=== PATIENT | female | born 1980 | race Caucasian/White ===

== ENCOUNTER 2018-08-23 19:23 | Emergency (ER) | payer MEDICAID ==
[2018-08-23] MEDS ORDERED: ONDANSETRON HCL INJ/PF 4 MG/2 ML SDV IV ONE (23:14)
--- NOTE | 2018-08-23 23:16 | ER Document Report ---
ED Medical Screen (RME) - General Chief Complaint: Constipation Stated Complaint: SEVERE CONSTIPATION Time Seen by Provider: 08/23/18 23:13 Primary Care Provider: LEAH FINCH [Primary Care Provider] - Follow up as needed Notes: Patient is a 37-year-old female presents to the emergency department complaining of constipation for the last 2 weeks. Patient states she has used [id number] stool softeners, laxatives, enemas, suppositories with no relief. Patient states 2 days ago she did vomit after eating and has had no p.o. solid food since. Patient states she has been able to drink liquids without any more vomiting but does feel nauseated. Patient states she does take methadone for her degenerative disc disease. Past medical history: Diabetes, degenerative disc disease Medications: Metformin, methadone Allergies: None Surgical history: Tubal ligation GENERAL: Alert, interacts well. No acute distress. ABDOMEN: Obese, soft, generalized tenderness all 4 quadrants. Non-distended. Bowel sounds present in all 4 quadrants. I have greeted and performed a rapid initial assessment of this patient. A comprehensive ED assessment and evaluation of the patient, analysis of test results and completion of the medical decision making process will be conducted by additional ED providers. TRAVEL OUTSIDE OF THE [place] IN LAST 30 DAYS: No Physical Exam - Vital signs Vitals: Temp Pulse Resp BP Pulse Ox 97.9 F 89 20 123/83 97 08/23/18 19:32 08/23/18 19:32 08/23/18 19:32 08/23/18 19:32 08/23/18 19:32 Course - Vital Signs Vital signs: Temp Pulse Resp BP Pulse Ox 97.9 F 89 20 123/83 97 08/23/18 19:32 08/23/18 19:32 08/23/18 19:32 08/23/18 19:32 08/23/18 19:32 Doctor's Discharge - Discharge Referrals: LEAH FINCH [Primary Care Provider] - Follow up as needed
[2018-08-24 00:08] LABS: APPEARANCE,URINE CLOUDY; BILIRUBIN,URINE NEGATIVE (NEGATIVE); COLOR,URINE YELLOW; GLUCOSE, URINE NEGATIVE (NEGATIVE); KETONES,URINE NEGATIVE (NEGATIVE); LEUKOCYTE ESTERASE,URINE MODERATE (NEGATIVE); NITRITE,URINE NEGATIVE (NEGATIVE); PROTEIN,URINE NEGATIVE (NEGATIVE); URINE SPECIFIC GRAVITY 1.025
--- NOTE | 2018-08-24 00:27 | ER Document Report ---
ED General - General Chief Complaint: Constipation Stated Complaint: SEVERE CONSTIPATION Time Seen by Provider: 08/23/18 23:13 Notes: Patient is a 37-year-old female who presents with complaints of severe constipation. She said last bowel movements approximately a week ago. She is been using stool softeners for 2 weeks. She says she tried MiraLAX once but nothing worked. She tried an enema but did not help. She has she still passes some gas but not much. She did have some vomiting 2 days ago when she is a large meal. She said otherwise she still been able to hold down liquids and she eats small amounts of food once a day that she is able to hold down. No fevers. She is on methadone. She says she is going to try and start to wean down on the methadone so that this does not occur as often as it has been. No other complaints at this time. TRAVEL OUTSIDE OF THE [place] IN LAST 30 DAYS: No Past Medical History - Social History Smoking Status: Never Smoker Frequency of alcohol use: None Drug Abuse: None Family History: Reviewed & Not Pertinent Review of Systems - Review of Systems Notes: My Normal Review Basic REVIEW OF SYSTEMS: CONSTITUTIONAL : Denies fever, chills, or sweats. Denies recent illness. RESPIRATORY: Denies cough, cold, or chest congestion. Denies shortness of breath, difficulty breathing, or wheezing. GASTROINTESTINAL: Some abdominal pain. Constipation. GENITOURINARY: Denies difficulty urinating, painful urination, burning, frequency, or blood in urine. MUSCULOSKELETAL: Denies neck or back pain or joint pain or swelling. SKIN: Denies rash or skin lesions. NEUROLOGICAL: Denies altered mental status or loss of consciousness. Denies headache. Denies weakness or paralysis or loss of use of either side. Denies problems with gait or speech. Denies sensory or motor loss. ALL OTHER SYSTEMS REVIEWED AND NEGATIVE. Physical Exam - Vital signs Vitals: Temp Pulse Resp BP Pulse Ox 97.9 F 89 20 123/83 97 08/23/18 19:32 08/23/18 19:32 08/23/18 19:32 08/23/18 19:32 08/23/18 19:32 - Notes Notes: General Appearance: Well nourished, alert, cooperative, no acute distress, no obvious discomfort. Well-appearing. Vitals: reviewed, See vital signs table. Eyes: PERRL, EOMI, Conjuctiva clear Abdomen: Normal BS, soft, No rigidity, mild scattered abdominal tenderness to palpation., No guarding, no rebound, no abdominal masses, no organomegaly Neuro: speech clear, oriented x 3, normal affect, responds appropriately to questions. Course - Re-evaluation Re-evalutation: 08/24/18 03:06 Patient had a large bowel movement after enema. She feels much improved. She looks well. She has no abdominal pain at this time. I feel she is safe to be discharged home. I strongly encouraged her return to ER if she has recurrent dental pain, fevers, vomiting, or feels unwell. We talked at length about weaning down or off the methadone. She is encouraged to talk to her doctor about this. Patient agrees with plan will be discharged home. Dictation of this chart was performed using voice recognition software; therefore, there may be some unintended grammatical errors. - Vital Signs Vital signs: Temp Pulse Resp BP Pulse Ox 97.9 F 89 20 123/83 97 08/23/18 19:32 08/23/18 19:32 08/23/18 19:32 08/23/18 19:32 08/23/18 19:32 - Laboratory Laboratory results interpreted by me: 08/23/18 23:55 Urine Blood LARGE H Urine Urobilinogen 2.0 H Ur Leukocyte Esterase MODERATE H Discharge - Discharge Clinical Impression: Abdominal pain Qualifiers: Abdominal location: unspecified location Qualified Code(s): R10.9 - Unspecified abdominal pain Condition: Good Disposition: HOME, SELF-CARE Additional Instructions: I suspect that the mild abdominal discomfort and bloating is related to constipation which is likely a result of the Methadone. Please talk to your doctor about being weaned off the methadone to help prevent future problems with constipation. Please continue to use Miralax daily and use over the counter suppositories such as glycerin suppositories. please return to the ER immediately if you develop fevers, vomiting, or increasing abdominal pain. Forms: Return to Work
--- NOTE | 2018-08-24 00:49 | RADIOLOGY REPORT (SQ) ---
EXAM DESCRIPTION: XR ABDOMEN SUPINE AND ERECT WITH CHEST (ABD ACUTE SERIES) COMPLETED DATE/TME: 08/23/2018 23:13 CLINICAL HISTORY: 37 years, Female, no BM x 2 weeks, vomiting COMPARISON: None. NUMBER OF VIEWS: Three TECHNIQUE: Supine and upright views of the abdomen. PA view of the chest. LIMITATIONS: None. FINDINGS: The lungs are clear. There are no pleural abnormalities. The cardiac silhouette and pulmonary vessels are normal. Supine and upright views of the abdomen show retained stool throughout the colon. No abnormal air-fluid levels. No pathologic calcifications. Tubal ligation clips are noted. IMPRESSION: No acute cardiopulmonary disease. Findings consistent with constipation. No evidence of obstruction. copyright 2010 [email or web address]- All Rights Reserved
[2018-08-24] MEDS ORDERED: MINERAL OIL 30 ML UDCUP PR ONE (01:15)
[2018-08-24 03:43] VITALS: BP 136/89
== END 2018-08-24 03:41 | disposition home or self-care (01) ==
LOC: ER 19:23
DX: R10.9 Unspecified abdominal pain (principal); K59.00 Constipation, unspecified
CPT/HCPCS: 99283; 96374; 81025; 81001; 74022; J3490; J2405

== ENCOUNTER 2019-04-08 18:43 | Emergency (ER) | payer MEDICAID ==
[2019-04-08] MEDS ORDERED: KETOROLAC TROMETHAMINE INJ/PF 30 MG/1 ML SDV IV ONE (20:06)
[2019-04-08] MEDS ORDERED: ONDANSETRON HCL INJ/PF 4 MG/2 ML SDV IV ONE (20:06)
[2019-04-08] MEDS ORDERED: NORMAL SALINE 1000 ML 1,000 ML IV ONE (20:07)
--- NOTE | 2019-04-08 20:08 | ER Document Report ---
ED Medical Screen (RME) - General Chief Complaint: Flank Pain Stated Complaint: FLANK PAIN Time Seen by Provider: 04/08/19 20:04 Mode of Arrival: Ambulatory Information source: Patient Notes: Patient is an otherwise healthy 38-year-old female presenting to the emergency department chief complaint of right flank pain with nausea. Patient reports history of kidney infections in the past but is unsure if she is ever had a kidney stone. She states that the pain feels like a sharp stabbing pain. She denies any urinary frequency or dysuria. Exam: Tenderness to palpation of the right lower quadrant, mild CVA tenderness on the right. I have greeted and performed a rapid initial assessment of this patient. A comprehensive ED assessment and evaluation of the patient, analysis of test res ults and completion of the medical decision making process will be conducted by additional ED providers. I have specifically instructed the patient or family members with the patient to immediately return to any nursing staff should anything change in the patient's condition or with their chief complaint. This medical record was dictated with voice recognizing software. There may be grammatical, syntax errors that are unintended. TRAVEL OUTSIDE OF THE [place] IN LAST 30 DAYS: No - Related Data Allergies/Adverse Reactions: No Known Allergies Allergy (Verified 04/08/19 18:45) Past Medical History Pulmonary Medical History: Reports: Hx Asthma Endocrine Medical History: Reports: Hx Diabetes Mellitus Type 2 Renal/ Medical History: Denies: Hx Peritoneal Dialysis Past Surgical History: Reports: Hx Gynecologic Surgery - DNC, Hx Tubal Ligation Physical Exam - Vital signs Vitals: Temp Pulse Resp BP Pulse Ox 98.9 F 85 18 148/89 H 98 04/08/19 18:57 04/08/19 18:57 04/08/19 18:57 04/08/19 18:57 04/08/19 18:57 Course - Vital Signs Vital signs: Temp Pulse Resp BP Pulse Ox 98.9 F 85 18 148/89 H 98 04/08/19 18:57 04/08/19 18:57 04/08/19 18:57 04/08/19 18:57 04/08/19 18:57
[2019-04-08 21:04] LABS: ABSOLUTE BASOPHILS # (AUTO) 0.1 10^3/uL (0.0-0.2); ABSOLUTE EOSINOPHILS # (AUTO) 0.2 10^3/uL (0.0-0.6); ABSOLUTE LYMPHOCYTES (AUTO) 3.5 10^3/uL (0.5-4.7); ABSOLUTE MONOCYTES (AUTO) 0.8 10^3/uL (0.1-1.4); ABSOLUTE NEUT (AUTO) 5.6 10^3/uL (1.7-8.2); BASOPHILS % (AUTO) 0.6 % (0-2); EOSINOPHILS % (AUTO) 2.2 % (0-6); HEMATOCRIT 43.1 % (36.0-47.0); HEMOGLOBIN 14.8 g/dL (12.0-15.5); LYMPHOCYTES % (AUTO) 34.7 % (13-45); MEAN CORPUSCULAR HEMOGLOBIN 28.7 pg (27.0-33.4); MEAN CORPUSCULAR HGB CONC 34.3 g/dL (32.0-36.0); MEAN CORPUSCULAR VOLUME 84 fl (80-97); MONOCYTES % (AUTO) 7.4 % (3-13); PLATELET COUNT 255 10^3/uL (150-450); RED BLOOD COUNT 5.15 10^6/uL (3.72-5.28); RED CELL DISTRIBUTION WIDTH 13.8 % (11.5-14.0); SEGMENTED NEUTROPHILS % (AUTO) 55.1 % (42-78); TOTAL CELLS COUNTED % (AUTO) 100 %; WHITE BLOOD COUNT 10.1 10^3/uL (4.0-10.5)
[2019-04-08 21:06] LABS: APPEARANCE,URINE CLEAR; BILIRUBIN,URINE NEGATIVE (NEGATIVE); COLOR,URINE COLORLESS; GLUCOSE, URINE NEGATIVE (NEGATIVE); KETONES,URINE NEGATIVE (NEGATIVE); LEUKOCYTE ESTERASE,URINE NEGATIVE (NEGATIVE); NITRITE,URINE NEGATIVE (NEGATIVE); PROTEIN,URINE NEGATIVE (NEGATIVE); URINE SPECIFIC GRAVITY 1.001; UROBILINOGEN,URINE NEGATIVE mg/dL (<2.0)
[2019-04-08 21:09] LABS: ALBUMIN 4.3 g/dL (3.5-5.0); ALKALINE PHOSPHATASE 79 U/L (38-126); ANION GAP 8 (5-19); ASPARTATE AMINO TRANSFERASE 30 U/L (14-36); BILIRUBIN,DIRECT 0.1 mg/dL (0.0-0.4); BILIRUBIN,TOTAL 0.5 mg/dL (0.2-1.3); BLOOD UREA NITROGEN 10 mg/dL (7-20); CALCIUM 9.6 mg/dL (8.4-10.2); CARBON DIOXIDE 27 mmol/L (22-30); CHLORIDE 103 mmol/L (98-107); GLUCOSE 95 mg/dL (75-110); POTASSIUM 4.3 mmol/L (3.6-5.0); TOTAL PROTEIN 7.8 g/dL (6.3-8.2)
--- NOTE | 2019-04-08 21:50 | ER Document Report ---
ED GI/ - General Chief Complaint: Flank Pain Stated Complaint: FLANK PAIN Time Seen by Provider: 04/08/19 21:50 Mode of Arrival: Ambulatory Information source: Patient Notes: HISTORY OF PRESENT ILLNESS: Patient is a 38-year-old female with a past medical history of pyelonephritis during who presents with right flank pain. Location: Right flank Onset: One day ago, sudden Alleviation: None Provocation: Movement Quality: Achy, cramping Radiation: Right posterior back Severity: Severe worse, currently mild Timing: Persistent History of abdominal surgery: None Associated symptoms: Mild nausea but no vomiting, denies fevers or chills, no cough congestion, no constipation or diarrhea, no vaginal bleeding or discharge, no hematuria or dysuria Last bowel movement: Today normal Last menstrual period: Last month REVIEW OF SYSTEMS: CONSTITUTIONAL : Denies fever or chills, no sweats. Denies recent illness. EENT: Denies eye, ear, throat, or mouth pain or symptoms. Denies nasal or sinus congestion. CARDIOVASCULAR: Denies chest pain. Denies swelling of the legs. RESPIRATORY: Denies cough, cold, or chest congestion. Denies shortness of breath or difficulty breathing. Denies wheezing. GASTROINTESTINAL: Positive for flank pain. Positive for nausea but no vomiting or diarrhea. Denies constipation. GENITOURINARY: Denies difficulty urinating, painful urination, burning, frequency, or blood in urine. FEMALE GENITOURINARY: Denies vaginal bleeding, abnormal or irregular periods. MUSCULOSKELETAL: Denies neck or back pain or joint pain or swelling. SKIN: Denies rash or skin lesions. HEMATOLOGIC : Denies easy bruising or bleeding. LYMPHATIC: Denies swollen, enlarged glands. NEUROLOGICAL: Denies altered mental status or loss of consciousness. Denies headache. Denies weakness or paralysis or loss of use of either side. Denies problems with gait or speech. Denies sensory or motor loss. PSYCHIATRIC: Denies anxiety or stress or depression. All other systems reviewed and negative. PHYSICAL EXAMINATION: GENERAL: Well-appearing, well-nourished and in no acute distress. HEAD: Atraumatic, normocephalic. No scalp deformity, depression, or crepitance. EYES: Pupils are 3 mm and equal/round/reactive to light, extraocular movements intact, sclera anicteric, conjunctiva are normal. ENT: Nares patent bilaterally, oropharynx. Moist mucous membranes. No tonsil hypertrophy. NECK: Normal range of motion, supple without lymphadenopathy. LUNGS: Breath sounds present, equal, and clear to auscultation bilaterally. No wheezes, rales, or rhonchi. HEART: Regular rate and rhythm without murmurs, rubs, or gallops. 2+ peripheral pulses. Normal capillary refill. ABDOMEN: Soft, nontender. Mild right CVA tenderness. Normoactive bowel sounds. No guarding, no rebound. No masses appreciated. BACK: Normal contour, no midline tenderness. Rectal exam deferred. GENITAL/PELVIC: Deferred. EXTREMITIES: Normal range of motion, no pitting or edema. No cyanosis. NEUROLOGICAL: No focal neurological deficits. Moves all extremities spontaneously and on command. PSYCH: Normal mood, normal affect. No suicidal thoughts/ideations. No homicidal thoughts/ideations. No hallucinations. SKIN: Warm, dry, normal turgor, no rashes or lesions noted. ASSESSMENT AND PLAN: This patient is a 38-year-old female who presents with right flank pain that could represent ureterolithiasis versus UTI versus pyelonephritis versus muscle strain. 1. Will obtain labs, urine, and reassess. 2. Will give IV fluids with Toradol. TRAVEL OUTSIDE OF THE [place] IN LAST 30 DAYS: No - HPI Patient complains to provider of: Flank pain Onset: Yesterday Timing/Duration: Sudden Quality of pain: Achy, Cramping Severity at maximum: Severe Severity in ED: Mild Pain Level: 2 Location: Right flank Vaginal bleeding (Compared to normal period): None Associated symptoms: Nausea, Urinary frequency Exacerbated by: Denies Relieved by: Denies Similar symptoms previously: Yes Recently seen / treated by doctor: No - Related Data Allergies/Adverse Reactions: No Known Allergies Allergy (Verified 04/08/19 18:45) Past Medical History - General Information source: Patient - Social History Smoking Status: Current Every Day Smoker Chew tobacco use (# tins/day): No Frequency of alcohol use: None Drug Abuse: None Lives with: Family Family History: Reviewed & Not Pertinent Patient has suicidal ideation: No Patient has homicidal ideation: No - Past Medical History Cardiac Medical History: Reports: None Pulmonary Medical History: Reports: Hx Asthma EENT Medical History: Reports: None Neurological Medical History: Reports: None Endocrine Medical History: Reports: Hx Diabetes Mellitus Type 2 Renal/ Medical History: Reports: None. Denies: Hx Peritoneal Dialysis Malignancy Medical History: Reports: None GI Medical History: Reports: None Musculoskeletal Medical History: Reports None Skin Medical History: Reports None Psychiatric Medical History: Reports: None Traumatic Medical History: Reports: None Infectious Medical History: Reports: None Past Surgical History: Reports: Hx Gynecologic Surgery - DNC, Hx Tubal Ligation - Immunizations Immunizations up to date: Yes Review of Systems - Review of Systems Constitutional: No symptoms reported EENT: No symptoms reported Cardiovascular: No symptoms reported Respiratory: No symptoms reported Gastrointestinal: See HPI Genitourinary: See HPI, Flank pain Female Genitourinary: No symptoms reported Musculoskeletal: No symptoms reported Skin: No symptoms reported Hematologic/Lymphatic: No symptoms reported Neurological/Psychological: No symptoms reported -: Yes All other systems reviewed and negative Physical Exam - Vital signs Vitals: Temp Pulse Resp BP Pulse Ox 98.9 F 85 18 148/89 H 98 04/08/19 18:57 04/08/19 18:57 04/08/19 18:57 04/08/19 18:57 04/08/19 18:57 Interpretation: Normal - General General appearance: Appears well, Alert - HEENT Head: Normocephalic, Atraumatic Eyes: Normal Pupils: PERRL - Respiratory Respiratory status: No respiratory distress Chest status: Nontender Breath sounds: Normal Chest palpation: Normal - Cardiovascular Rhythm: Regular Heart sounds: Normal auscultation Murmur: No - Abdominal Inspection: Normal Distension: No distension Bowel sounds: Normal Tenderness: Nontender Organomegaly: No organomegaly - Back Back: Normal, Nontender - Extremities General upper extremity: Normal inspection, Nontender, Normal color, Normal ROM, Normal temperature General lower extremity: Normal inspection, Nontender, Normal color, Normal ROM, Normal temperature, Normal weight bearing. No: Alyse's sign - Neurological Neuro grossly intact: Yes Cognition: Normal Orientation: AAOx4 Hemal Coma Scale Eye Opening: Spontaneous [place] Coma Scale Verbal: Oriented Hemal Coma Scale Motor: Obeys Commands Hemal Coma Scale Total: 15 Speech: Normal Motor strength normal: LUE, RUE, LLE, RLE Sensory: Normal - Psychological Associated symptoms: Normal affect, Normal mood - Skin Skin Temperature: Warm Skin Moisture: Dry Skin Color: Normal Course - Re-evaluation Re-evalutation: 04/08/19 22:17 Blood work, including urinalysis, is normal. No evidence of hematuria to suggest kidney stone, also no indication of infection. Will discharge the patient home with strict return precautions and follow-up with primary care. All results were explained to and discussed with the patient, and all questions addressed and answered for the patient. The patient voices both understanding and agreeing with the plan. - Vital Signs Vital signs: Temp Pulse Resp BP Pulse Ox 98.9 F 85 18 148/89 H 98 04/08/19 18:57 04/08/19 18:57 04/08/19 18:57 04/08/19 18:57 04/08/19 18:57 - Laboratory Result Diagrams: 04/08/19 20:13 04/08/19 20:13 Discharge - Discharge Clinical Impression: Flank pain Condition: Good Disposition: HOME, SELF-CARE Instructions: Abdominal Pain ([facility]) Additional Instructions: You have been evaluated in the Emergency Department for right flank pain that could be related to a kidney stone or muscle strain. While here, you had blood work and urinalysis that were normal and it is now safe to be discharged home. Please follow-up with your primary physician as instructed in 1 week to be rechecked. Return to the Emergency Department if you experience high fevers, worsening pain, bloody urine, the inability to urinate, or any other concerning symptoms. Prescriptions: Ondansetron [Zofran Odt 4 mg Tablet] 4 mg PO Q8HP PRN #30 tab.rapdis PRN Reason: For Nausea/Vomiting Tamsulosin HCl [Flomax 0.4 mg Cap.sr] 0.4 mg PO DAILY #7 cap.sr.24h Diclofenac Sodium [Voltaren] 75 mg PO BID #30 tablet.dr Print Language: [place]
[2019-04-08 22:49] VITALS: BP 140/88
== END 2019-04-08 22:49 | disposition home or self-care (01) ==
LOC: ER 18:43
DX: R10.9 Unspecified abdominal pain (principal); R11.0 Nausea; R35.0 Frequency of micturition; J45.909 Unspecified asthma, uncomplicated; E11.9 Type 2 diabetes mellitus without complications; F17.200 Nicotine dependence, unspecified, uncomplicated; Z87.440 Personal history of urinary (tract) infections; Z98.51 Tubal ligation status
CPT/HCPCS: 36415; 83690; 84703; 85025; 80053; 81001; J1885; J2405; J7030; 96374; 96375; 99284

== ENCOUNTER 2019-09-10 14:41 | Inpatient (IN) | payer MEDICAID ==
[2019-09-10 15:08] LABS: ABSOLUTE LYMPHOCYTES (AUTO) 1.3 10^3/uL (0.5-4.7); ABSOLUTE MONOCYTES (AUTO) 0.7 10^3/uL (0.1-1.4); ABSOLUTE NEUT (AUTO) 4.5 10^3/uL (1.7-8.2); BASOPHILS % (AUTO) 0.1 % (0-2); HEMATOCRIT 39.3 % (36.0-47.0); HEMOGLOBIN 13.7 g/dL (12.0-15.5); LYMPHOCYTES % (AUTO) 19.6 % (13-45); MEAN CORPUSCULAR HEMOGLOBIN 29.3 pg (27.0-33.4); MEAN CORPUSCULAR HGB CONC 34.9 g/dL (32.0-36.0); MEAN CORPUSCULAR VOLUME 84 fl (80-97); MONOCYTES % (AUTO) 11.3 % (3-13); PLATELET COUNT 227 10^3/uL (150-450); RED BLOOD COUNT 4.67 10^6/uL (3.72-5.28); TOTAL CELLS COUNTED % (AUTO) 100 %; WHITE BLOOD COUNT 6.5 10^3/uL (4.0-10.5)
--- NOTE | 2019-09-10 15:22 | RADIOLOGY REPORT (SQ) ---
EXAM DESCRIPTION: CHEST SINGLE VIEW COMPLETED DATE/TIME: 09/10/2019 3:08 pm REASON FOR STUDY: Difficulty breathing COMPARISON: None. EXAM PARAMETERS: NUMBER OF VIEWS: One view. TECHNIQUE: Single frontal radiographic view of the chest acquired. RADIATION DOSE: NA LIMITATIONS: None. FINDINGS: LUNGS AND PLEURA: Patchy bilateral airspace disease, greatest within the left lower lobe. No large effusion. No pneumothorax MEDIASTINUM AND HILAR STRUCTURES: No masses. Contour normal. HEART AND VASCULAR STRUCTURES: Heart normal in size. Normal vasculature. BONES: No acute findings. HARDWARE: None in the chest. OTHER: No other significant finding. IMPRESSION: Patchy bilateral airspace disease, greatest within the left lower lobe, suggestive of mu ltifocal pneumonia. TECHNICAL DOCUMENTATION: JOB ID: [id number] 2010 [employer]- All Rights Reserved Reading location - IP/workstation name: [email or web address]
[2019-09-10] MEDS ORDERED: CEFTRIAXONE 1 GM/D5W RTU 1 GM/50 ML RTUPB IV ONE ×2 (15:24→19:51)
[2019-09-10] MEDS ORDERED: AZITHROMYCIN INJ 500 MG VIAL IV ONE (15:24)
--- NOTE | 2019-09-10 15:27 | ER Document Report ---
ED General - General Chief Complaint: Shortness Of Breath Stated Complaint: RESPIRATORY DISTRESS/FLU Time Seen by Provider: 09/10/19 15:22 Notes: 38-year-old female presents emergency department complaining of shortness of breath. Patient was brought in by EMS, found to be 78% on room air at home, given 2 breathing treatments and Solu-Medrol and route, on 15 L via nonrebreather. Patient states she feels like she has been dying for the past 2 weeks. States she had flulike symptoms including fever, cough, vomiting, diarrhea and aches. States that this started about 2 weeks ago and actually got slightly better over the weekend however on Sunday she was feeling extremely short of breath, was orthopneic on awakening, states that now she has to sleep sitting up in her recliner. States that whenever she lays down she develops choking sensation and coughs until she vomits. States that she had a small amount of relief with an albuterol nebulizer and an albuterol inhaler. Does admit having had a history of asthma but has not had to use her inhaler in years. Patient did see her primary care physician on Sunday and was prescribed prednisone and promethazine. No antibiotics. Denies history of DVT, PE, heart attack, or heart failure in her personally or in first-degree relatives. TRAVEL OUTSIDE OF THE [place] IN LAST 30 DAYS: No - Related Data Allergies/Adverse Reactions: No Known Allergies Allergy (Verified 04/08/19 18:45) Past Medical History - General Information source: Patient - Social History Smoking Status: Former Smoker - 3 weeks ago. Frequency of alcohol use: None Drug Abuse: None Family History: Reviewed & Not Pertinent Patient has suicidal ideation: No Patient has homicidal ideation: No Pulmonary Medical History: Reports: Hx Asthma Endocrine Medical History: Reports: Hx Diabetes Mellitus Type 2 Renal/ Medical History: Denies: Hx Peritoneal Dialysis Past Surgical History: Reports: Hx Gynecologic Surgery - DNC, Hx Tubal Ligation - Immunizations Immunizations up to date: Yes Review of Systems - Review of Systems Constitutional: See HPI, Fever, Malaise, Weakness EENT: No symptoms reported Cardiovascular: See HPI, Orthopnea, Dyspnea Respiratory: See HPI, Cough, Short of breath Gastrointestinal: See HPI -: Yes All other systems reviewed and negative Physical Exam - Vital signs Vitals: Pulse Ox 98 09/10/19 14:46 - Notes Notes: GENERAL: Alert, interacts well. No acute distress. HEAD: Normocephalic, atraumatic EYES: Pupils equal, round and reactive to light, extraocular movements intact. ENT: Oral mucosa moist, tongue midline. NECK: Full range of motion, supple, trachea midline. LUNGS: Minimal expiratory wheezing, diffuse inspiratory rhonchi, there is actually also expiratory rhonchi. Patient has a frequent dry cough while talking, on 100% nonrebreather, desaturates to 94% when talking. Otherwise 98%. HEART: Regular rate and rhythm, no murmurs, gallops, rubs. ABDOMEN: Soft, nontender, nondistended, bowel sounds present in all 4 quadrants. EXTREMITIES: Moves all 4 extremities spontaneously, no edema, radial and dorsalis pedis pulses 2/4 bilaterally. No cyanosis. NEUROLOGICAL: Alert and oriented x3, normal speech. PSYCH: Normal mood, normal affect. SKIN: Warm, Dry, normal turgor, no rashes or lesions noted. Course - Re-evaluation Re-evalutation: 09/10/19 18:04 Patient had minimal if any wheezing but lung sounds were quite coarse, patient was started on BiPAP as she was on 15 L via nonrebreather and dropped down to 94% while speaking, patient is feeling much better on nonrebreather at 40%, patient was already given breathing treatments and steroids by EMS, chest x-ray shows multifocal pneumonia, she was treated with Rocephin and azithromycin, I suspect a post viral pneumonia possibly post influenza pneumonia. No indication for testing for influenza or treating with Tamiflu at this time as her symptoms started 2 weeks ago, CBC is surprisingly negative with no leukocytosis, venous blood gas shows slight alkalosis with a pH of 7.44 otherwise unremarkable, CMP has a normal lactic acid, slightly low sodium and potassium, elevated AST and alk phos, detectable troponin which is negative at 0.024, EKG will be checked, proBNP is a little bit elevated at 702 although she has no other signs of heart failure at this time, urinalysis shows large blood, trace leukocyte esterase, she has no urinary symptoms. test is negative. Discussed patient with Dr. Pandey who agrees to admit the patient to his service on the [facility]. - Vital Signs Vital signs: Temp Pulse Resp BP Pulse Ox 98.2 F 14 142/80 H 97 09/10/19 15:11 09/10/19 16:01 09/10/19 16:01 09/10/19 16:01 - Laboratory Result Diagrams: 09/10/19 14:48 09/10/19 14:46 Laboratory results interpreted by me: 09/10/19 09/10/19 09/10/19 14:46 14:46 14:48 RDW 15.0 H VBG pH Sodium 136.8 L Potassium 3.4 L Chloride 97 L Carbon Dioxide 34 H Calcium 8.1 L AST 188 H Alkaline Phosphatase 160 H Creatine Kinase 209 H NT-Pro-B Natriuret Pep 702 H Total Protein 6.2 L Albumin 3.1 L Urine Protein Urine Blood Urine Urobilinogen Ur Leukocyte Esterase 09/10/19 09/10/19 15:45 15:45 RDW VBG pH 7.44 H Sodium Potassium Chloride Carbon Dioxide Calcium AST Alkaline Phosphatase Creatine Kinase NT-Pro-B Natriuret Pep Total Protein Albumin Urine Protein 100 H Urine Blood LARGE H Urine Urobilinogen 4.0 H Ur Leukocyte Esterase TRACE H Critical Care Note - Critical Care Note Total time excluding time spent on procedures (mins): 55 Discharge - Discharge Clinical Impression: Multifocal pneumonia, Acute respiratory failure with hypoxia Condition: Fair Disposition: ADMITTED INPATIENT Admitting Provider: Dannie (Hospitalist) Unit Admitted: REGINALD
[2019-09-10] MEDS: RINGERS SOLUTION,LACTATED 1,000 ML IV PRN ×2 (15:36→15:37)
[2019-09-10 16:02] LABS: ALBUMIN 3.1 g/dL (3.5-5.0); ALKALINE PHOSPHATASE 160 U/L (38-126); ANION GAP 6 (5-19); ASPARTATE AMINO TRANSFERASE 188 U/L (14-36); BILIRUBIN,DIRECT 0.1 mg/dL (0.0-0.4); BILIRUBIN,TOTAL 0.4 mg/dL (0.2-1.3); BLOOD UREA NITROGEN 12 mg/dL (7-20); CALCIUM 8.1 mg/dL (8.4-10.2); CARBON DIOXIDE 34 mmol/L (22-30); CHLORIDE 97 mmol/L (98-107); CREATINE KINASE 209 U/L (30-135); GLUCOSE 100 mg/dL (75-110); POTASSIUM 3.4 mmol/L (3.6-5.0); TOTAL PROTEIN 6.2 g/dL (6.3-8.2)
[2019-09-10 16:08] LABS: APPEARANCE,URINE SLIGHTLY-CLOUDY; BILIRUBIN,URINE NEGATIVE (NEGATIVE); COLOR,URINE YELLOW; GLUCOSE, URINE NEGATIVE (NEGATIVE); KETONES,URINE NEGATIVE (NEGATIVE); LEUKOCYTE ESTERASE,URINE TRACE (NEGATIVE); NITRITE,URINE NEGATIVE (NEGATIVE); PROTEIN,URINE 100 mg/dL (NEGATIVE)
[2019-09-10 16:14] LABS: CREATINE KINASE MB 1.77 ng/mL (<4.55); TROPONIN I 0.024 ng/mL
[2019-09-10 16:15] LABS: VENOUS BLOOD BASE EXCESS 5.3 mmol/L; VENOUS BLOOD HCO3 30.4 mmol/L (20-32); VENOUS BLOOD PH 7.44 (7.30-7.42)
[2019-09-10] MEDS ORDERED: OXYCODONE-ACETAMINOPHEN 5-325 MG TABLET PO PRN (18:23)
[2019-09-10] MEDS ORDERED: NORMAL SALINE 1000 ML 1,000 ML IV PRN (18:23)
[2019-09-10] MEDS ORDERED: PROMETHAZINE HCL INJ 25 MG/1 ML VIAL IV PRN (18:23)
[2019-09-10] MEDS ORDERED: IPRATROPIUM/ALBUTEROL 0.5-2.5 MG/3 ML AMPUL NEB PRN (18:23)
--- NOTE | 2019-09-10 18:23 | PDOC H&P ---
History of Present Illness Admission Date/PCP: MILLICENT CHOWDARY MD History of Present Illness: FLORENCIO MARROQUIN is a 38 year old female past medical history of obesity, chronic back pain with opiate dependency currently on methadone maintenance, scented to ED complaining of worsening shortness of breath. Brought to ED by EMS was noted to be saturating 78% on room air by EMS. Was started on breathing treatment and on nonrebreather on 15 L and brought to ED. She is a stating that she developed flulike symptoms including fever, vomiting diarrhea and body aches a week ago went to see her PCP was started on prednisone, promethazine which made her feel somewhat better but then she developed worsening shortness of breath, orthopnea and has had 2 sleep on her recliner due to severe orthopnea. Denies any chest pain, abdominal pain, diarrhea, constipation, weight changes, headache, numbness, tingling, or focal neurological symptoms. Past Medical History Pulmonary Medical History: Reports: Asthma Endocrine Medical History: Reports: Diabetes Mellitus Type 2 Past Surgical History Past Surgical History: Reports: Tubal Ligation Social History Smoking Status: Former Smoker - 3 weeks ago. Family History Family History: Reviewed & Not Pertinent Parental Family History Reviewed: Yes Children Family History Reviewed: Yes Sibling(s) Family History Reviewed.: Yes Medication/Allergy Home Medications: Acetaminophen [Acetaminophen Extra Strength] 1,000 mg PO Q6HP PRN 09/10/19 Dextroamphetamine/Amphetamine [Adderall 10 mg Tablet] 20 mg PO BID 09/10/19 Ibuprofen [Motrin 800 mg Tablet] 800 mg PO Q8HP PRN 09/10/19 Metformin HCl [Metformin HCl ER] 1,000 mg PO WSUPPER 09/10/19 Allergies/Adverse Reactions: No Known Allergies Allergy (Verified 04/08/19 18:45) Review of Systems Review of Systems: as per hpi Physical Exam Vital Signs: Temp Pulse Resp BP Pulse Ox 98.2 F 14 142/80 H 97 09/10/19 15:11 09/10/19 16:01 09/10/19 16:01 09/10/19 16:01 Intake & Output 09/09/19 09/10/19 09/11/19 06:59 06:59 06:59 Intake Total 1017 Balance 1017 Weight 102.2 kg General appearance: PRESENT: mild distress, obese Respiratory exam: PRESENT: crackles, tachypnea. ABSENT: rales, rhonchi, wheezes Cardiovascular exam: PRESENT: RRR. ABSENT: diastolic murmur, rubs, systolic murmur GI/Abdominal exam: PRESENT: normal bowel sounds, soft. ABSENT: distended, guarding, mass, organolmegaly, rebound, tenderness Neurological exam: PRESENT: alert, awake, oriented to person, oriented to place, oriented to time, oriented to situation, CN II-XII grossly intact. ABSENT: motor sensory deficit Results Laboratory Results: 09/10/19 14:48 09/10/19 14:46 09/10/19 09/10/19 09/10/19 14:46 14:48 15:45 WBC 6.5 RBC 4.67 Hgb 13.7 Hct 39.3 MCV 84 MCH 29.3 MCHC 34.9 RDW 15.0 H Plt Count 227 Seg Neutrophils % 69.0 VBG pH VBG pCO2 VBG HCO3 VBG Base Excess Sodium 136.8 L Potassium 3.4 L Chloride 97 L Carbon Dioxide 34 H Anion Gap 6 BUN 12 Creatinine 0.63 Est GFR ( Amer) > 60 Glucose 100 Lactic Acid 1.4 Calcium 8.1 L Total Bilirubin 0.4 AST 188 H Alkaline Phosphatase 160 H Total Protein 6.2 L Albumin 3.1 L Urine Color Urine Appearance Urine pH Ur Specific [place] Urine Protein Urine Glucose (UA) Urine Ketones Urine Blood Urine Nitrite Ur Leukocyte Esterase Urine WBC (Auto) Urine RBC (Auto) 09/10/19 09/10/19 15:45 15:45 WBC RBC Hgb Hct MCV MCH MCHC RDW Plt Count Seg Neutrophils % VBG pH 7.44 H VBG pCO2 46.0 VBG HCO3 30.4 VBG Base Excess 5.3 Sodium Potassium Chloride Carbon Dioxide Anion Gap BUN Creatinine Est GFR ( Amer) Glucose Lactic Acid Calcium Total Bilirubin AST Alkaline Phosphatase Total Protein Albumin Urine Color YELLOW Urine Appearance SLIGHTLY-CLOUDY Urine pH 7.0 Ur Specific [place] 1.020 Urine Protein 100 H Urine Glucose (UA) NEGATIVE Urine Ketones NEGATIVE Urine Blood LARGE H Urine Nitrite NEGATIVE Ur Leukocyte Esterase TRACE H Urine WBC (Auto) 4 Urine RBC (Auto) 138 09/10/19 09/10/19 14:46 14:46 Creatine Kinase 209 H CK-MB (CK-2) 1.77 Troponin I 0.024 NT-Pro-B Natriuret Pep 702 H Impressions: Chest X-Ray 09/10/19 14:46 IMPRESSION: Patchy bilateral airspace disease, greatest within the left lower lobe, suggestive of multifocal pneumonia. Assessment and Plan - Diagnosis (1) Acute respiratory failure with hypoxia Is this a current diagnosis for this admission?: Yes Plan: Presented with SPO2 of 78% on room air. Underlying multifocal pneumonia complicated by history of asthma. Admit to I[facility], BiPAP, duo nebs, LABA, LABA, ICS, IV steroids, broad-spectrum empiric IV antibiotics, pulmonology, flutter valve, incentive spirometry. (2) Multifocal pneumonia Is this a current diagnosis for this admission?: Yes Plan: As per #1.
[2019-09-10] MEDS ORDERED: IPRATROPIUM/ALBUTEROL 0.5-2.5 MG/3 ML AMPUL NEB ONE (19:43)
[2019-09-10] MEDS: IPRATROPIUM/ALBUTEROL 0.5-2.5 MG/3 ML AMPUL NEB SCH (20:01)
[2019-09-10] MEDS: CEFTRIAXONE 1 GM/D5W RTU 1 GM/50 ML RTUPB IV SCH (20:05)
[2019-09-10] MEDS: ENOXAPARIN SODIUM INJ 40 MG/0.4 ML DISP.SYRIN SUBCUT SCH (20:08)
[2019-09-11] MEDS: ACETAMINOPHEN 325 MG TABLET PO PRN ×2 (00:58→20:13)
[2019-09-11 02:57] LABS: ABSOLUTE LYMPHOCYTES (AUTO) 0.4 10^3/uL (0.5-4.7); ABSOLUTE MONOCYTES (AUTO) 0.4 10^3/uL (0.1-1.4); ABSOLUTE NEUT (AUTO) 2.2 10^3/uL (1.7-8.2); BASOPHILS % (AUTO) 0.1 % (0-2); HEMOGLOBIN 12.4 g/dL (12.0-15.5); LYMPHOCYTES % (AUTO) 13.9 % (13-45); MEAN CORPUSCULAR HEMOGLOBIN 29.1 pg (27.0-33.4); MEAN CORPUSCULAR HGB CONC 34.4 g/dL (32.0-36.0); MEAN CORPUSCULAR VOLUME 84 fl (80-97); MONOCYTES % (AUTO) 13.2 % (3-13); PLATELET COUNT 198 10^3/uL (150-450); RED BLOOD COUNT 4.26 10^6/uL (3.72-5.28); RED CELL DISTRIBUTION WIDTH 14.8 % (11.5-14.0); SEGMENTED NEUTROPHILS % (AUTO) 72.8 % (42-78); TOTAL CELLS COUNTED % (AUTO) 100 %; WHITE BLOOD COUNT 3.1 10^3/uL (4.0-10.5)
[2019-09-11 03:14] LABS: ALBUMIN 2.7 g/dL (3.5-5.0); ALKALINE PHOSPHATASE 123 U/L (38-126); ANION GAP 6 (5-19); ASPARTATE AMINO TRANSFERASE 121 U/L (14-36); BILIRUBIN,DIRECT 0.3 mg/dL (0.0-0.4); BILIRUBIN,TOTAL 0.3 mg/dL (0.2-1.3); BLOOD UREA NITROGEN 11 mg/dL (7-20); CALCIUM 8.1 mg/dL (8.4-10.2); CARBON DIOXIDE 33 mmol/L (22-30); CHLORIDE 100 mmol/L (98-107); CHOLESTEROL 116.86 mg/dL (0-200); GLUCOSE 132 mg/dL (75-110); TOTAL PROTEIN 5.9 g/dL (6.3-8.2); TRIGLYCERIDES 199 mg/dL (<150)
[2019-09-11 03:26] LABS: DIRECT LDL 73 mg/dL (<100)
[2019-09-11 03:36] LABS: VLDL CHOLESTEROL 39.8 mg/dL (10-31)
[2019-09-11] MEDS: PANTOPRAZOLE SODIUM 40 MG TABLET.DR PO SCH ×2 (06:28→18:19)
[2019-09-11] MEDS: ONDANSETRON HCL INJ/PF 4 MG/2 ML SDV IV PRN ×2 (06:32→11:40)
[2019-09-11] MEDS ORDERED: INFLUENZA QUAD (6MOS+) 2019-20 VAC 0.5 ML SYR IM ONE (08:40)
[2019-09-11] MEDS: IPRATROPIUM/ALBUTEROL 0.5-2.5 MG/3 ML AMPUL NEB SCH ×3 (08:43→21:04)
--- NOTE | 2019-09-11 09:05 | EKG REPORT ---
SEVERITY:- ABNORMAL ECG - SINUS RHYTHM RIGHT AXIS DEVIATION LOW VOLTAGE IN FRONTAL LEADS NONSPECIFIC T ABNORMALITIES, INFERIOR LEADS : Confirmed by: Diogo Weston MD 11-Sep-2019 07:07:46
[2019-09-11 09:53] LABS: FREE T3 2.95 pg/mL (2.77-5.27); FREE T4 (FREE THYROXINE) 1.32 ng/dL (0.78-2.19)
[2019-09-11] MEDS: ENOXAPARIN SODIUM INJ 40 MG/0.4 ML DISP.SYRIN SUBCUT SCH (10:37)
[2019-09-11] MEDS: FLUTICASONE/UMECLIDIN/VILANTER 100-62.5-25 MCG/DOSE IH SCH (10:38)
[2019-09-11] MEDS: AZITHROMYCIN 500 MG in DEXTROSE 5%-WATER 250 ML IV SCH (10:39)
[2019-09-11] MEDS: DOCUSATE SODIUM 100 MG/10 ML UDC PO SCH (10:40)
[2019-09-11] MEDS: CEFTRIAXONE 1 GM/D5W RTU 1 GM/50 ML RTUPB IV SCH ×2 (10:40→18:20)
--- NOTE | 2019-09-11 10:58 | PDOC PROGRESS REPORT ---
Subjective Progress Note for:: 09/11/19 Subjective:: FLORENCIO MARROQUIN is a 38 year old female past medical history of obesity, chronic back pain with opiate dependency currently on methadone maintenance, presented to ED complaining of worsening shortness of breath. Brought to ED by EMS was noted to be saturating 78% on room air by EMS. Was started on breathing treatment and on nonrebreather on 15 L and brought to ED. She is a stating that she developed flulike symptoms including fever, vomiting diarrhea and body aches a week ago went to see her PCP was started on prednisone, promethazine which made her feel somewhat better but then she developed worsening shortness of breath, orthopnea and has had 2 sleep on her recliner due to severe orthopnea. Denies any chest pain, abdominal pain, diarrhea, constipation, weight changes, headache, numbness, tingling, or focal neurological symptoms. 09/11/2019. No acute events overnight. Saw patient this morning, resting in bed in no apparent distress, on supplemental oxygen, stating that she still gets short of breath off of oxygen and has been on BiPAP and supplemental oxygen overnight. Denies any fever, chills, nausea, vomiting, diarrhea, constipation or any urinary symptoms. Reason For Visit: MULTIFOCAL PNEUMONIA,ACUTE RESPIRATORY FAILURE Physical Exam Vital Signs: Temp Pulse Resp BP Pulse Ox 98.2 F 54 L 20 135/88 H 92 09/11/19 07:18 09/11/19 08:44 09/11/19 08:44 09/11/19 07:18 09/11/19 08:44 Intake & Output 09/10/19 09/11/19 09/12/19 06:59 06:59 06:59 Intake Total 1307 Output Total 100 Balance 1207 Weight 97.4 kg General appearance: PRESENT: mild distress, obese Head exam: PRESENT: atraumatic, normocephalic Respiratory exam: PRESENT: accessory muscle use, crackles, decreased breath sounds. ABSENT: rales, rhonchi, wheezes Cardiovascular exam: PRESENT: RRR. ABSENT: diastolic murmur, rubs, systolic murmur GI/Abdominal exam: PRESENT: normal bowel sounds, soft. ABSENT: distended, guarding, mass, organolmegaly, rebound, tenderness Neurological exam: PRESENT: alert, awake, oriented to person, oriented to place, oriented to time, oriented to situation, CN II-XII grossly intact. ABSENT: motor sensory deficit Results Laboratory Results: 09/11/19 02:45 09/11/19 02:45 09/10/19 09/10/19 09/10/19 14:46 14:48 15:45 WBC 6.5 RBC 4.67 Hgb 13.7 Hct 39.3 MCV 84 MCH 29.3 MCHC 34.9 RDW 15.0 H Plt Count 227 Seg Neutrophils % 69.0 VBG pH VBG pCO2 VBG HCO3 VBG Base Excess Sodium 136.8 L Potassium 3.4 L Chloride 97 L Carbon Dioxide 34 H Anion Gap 6 BUN 12 Creatinine 0.63 Est GFR ( Amer) > 60 Glucose 100 Lactic Acid 1.4 Calcium 8.1 L Magnesium Total Bilirubin 0.4 AST 188 H Alkaline Phosphatase 160 H Total Protein 6.2 L Albumin 3.1 L Triglycerides Cholesterol LDL Cholesterol Direct VLDL Cholesterol HDL Cholesterol TSH Free T4 Free T3 pg/mL Urine Color Urine Appearance Urine pH Ur Specific [place] Urine Protein Urine Glucose (UA) Urine Ketones Urine Blood Urine Nitrite Ur Leukocyte Esterase Urine WBC (Auto) Urine RBC (Auto) 09/10/19 09/10/19 09/11/19 15:45 15:45 02:45 WBC 3.1 L RBC 4.26 Hgb 12.4 Hct 36.0 MCV 84 MCH 29.1 MCHC 34.4 RDW 14.8 H Plt Count 198 Seg Neutrophils % 72.8 VBG pH 7.44 H VBG pCO2 46.0 VBG HCO3 30.4 VBG Base Excess 5.3 Sodium Potassium Chloride Carbon Dioxide Anion Gap BUN Creatinine Est GFR ( Amer) Glucose Lactic Acid Calcium Magnesium Total Bilirubin AST Alkaline Phosphatase Total Protein Albumin Triglycerides Cholesterol LDL Cholesterol Direct VLDL Cholesterol HDL Cholesterol TSH Free T4 Free T3 pg/mL Urine Color YELLOW Urine Appearance SLIGHTLY-CLOUDY Urine pH 7.0 Ur Specific [place] 1.020 Urine Protein 100 H Urine Glucose (UA) NEGATIVE Urine Ketones NEGATIVE Urine Blood LARGE H Urine Nitrite NEGATIVE Ur Leukocyte Esterase TRACE H Urine WBC (Auto) 4 Urine RBC (Auto) 138 09/11/19 09/11/19 09/11/19 02:45 02:45 08:29 WBC RBC Hgb Hct MCV MCH MCHC RDW Plt Count Seg Neutrophils % VBG pH VBG pCO2 VBG HCO3 VBG Base Excess Sodium 138.7 Potassium 4.0 Chloride 100 Carbon Dioxide 33 H Anion Gap 6 BUN 11 Creatinine 0.50 L Est GFR ( Amer) > 60 Glucose 132 H Lactic Acid Calcium 8.1 L Magnesium 2.2 Total Bilirubin 0.3 AST 121 H Alkaline Phosphatase 123 Total Protein 5.9 L Albumin 2.7 L Triglycerides 199 H Cholesterol 116.86 LDL Cholesterol Direct 73 VLDL Cholesterol 39.8 H HDL Cholesterol 24 L TSH 0.19 L Free T4 1.32 Free T3 pg/mL 2.95 Urine Color Urine Appearance Urine pH Ur Specific [place] Urine Protein Urine Glucose (UA) Urine Ketones Urine Blood Urine Nitrite Ur Leukocyte Esterase Urine WBC (Auto) Urine RBC (Auto) 09/10/19 09/10/19 09/10/19 14:46 14:46 19:55 Creatine Kinase 209 H CK-MB (CK-2) 1.77 Troponin I 0.024 0.032 NT-Pro-B Natriuret Pep 702 H 09/11/19 09/11/19 02:45 08:29 Creatine Kinase CK-MB (CK-2) Troponin I 0.034 0.046 NT-Pro-B Natriuret Pep Impressions: Chest X-Ray 09/10/19 14:46 IMPRESSION: Patchy bilateral airspace disease, greatest within the left lower lobe, suggestive of multifocal pneumonia. Assessment and Plan - Diagnosis (1) Acute respiratory failure with hypoxia Is this a current diagnosis for this admission?: Yes Plan: Mild improvement. SPO2 WNL on 4 to 6 L. Presented with SPO2 of 78% on room air. Underlying multifocal pneumonia complicated by history of asthma. Continue BiPAP, duo nebs, LABA, LABA, ICS, IV steroids, broad-spectrum empiric IV antibiotics, pulmonology, flutter valve, incentive spirometry. (2) Multifocal pneumonia Is this a current diagnosis for this admission?: Yes Plan: As per #1. (3) Hyperlipidemia Is this a current diagnosis for this admission?: Yes Plan: We will start on low intensity statins. Diet and lifestyle modification recommended. Outpatient PCP follow-up for LFT monitoring. (4) Opioid dependence Qualifiers: Substance use status: in remission Qualified Code(s): F11.21 - Opioid dependence, in remission Is this a current diagnosis for this admission?: Yes Plan: History of opiate dependency which started with taking prescription opioids for chronic back pain. Currently seen at the methadone clinic. On methadone 60 mg p.o. daily. Restart home meds. Monitor for severe depression. Supportive measures. (5) History of cocaine abuse Is this a current diagnosis for this admission?: Yes Plan: Remote history of cocaine abuse. Encouraged abstinence. (6) Elevated troponin Is this a current diagnosis for this admission?: Yes Plan: Denies any anginal symptoms. Troponins 0.024, 0.032, 0.034, 0.046 respectively. proBNP 702. EKG sinus rhythm, right axis deviation, nonspecific T wave abnormalities. Endorses positive CAD history in the family. Sister of myocardial infarction at age 40. Given family history and also history of cocaine abuse not sure if patient has underlying cardiomyopathy. We will obtain 2D echo. Lipid panel, and consult cardiology for further recommendation.
[2019-09-11] MEDS: METHADONE HCL 10 MG TABLET PO SCH (13:08)
[2019-09-12] MEDS: PANTOPRAZOLE SODIUM 40 MG TABLET.DR PO SCH ×2 (06:37→17:19)
[2019-09-12] MEDS: IPRATROPIUM/ALBUTEROL 0.5-2.5 MG/3 ML AMPUL NEB SCH ×3 (09:12→20:37)
[2019-09-12] MEDS: DOCUSATE SODIUM 100 MG/10 ML UDC PO SCH (11:16)
[2019-09-12] MEDS: AZITHROMYCIN 500 MG in DEXTROSE 5%-WATER 250 ML IV SCH (11:20)
[2019-09-12] MEDS: ENOXAPARIN SODIUM INJ 40 MG/0.4 ML DISP.SYRIN SUBCUT SCH (11:22)
[2019-09-12] MEDS: METHADONE HCL 10 MG TABLET PO SCH (11:22)
[2019-09-12] MEDS: FLUTICASONE/UMECLIDIN/VILANTER 100-62.5-25 MCG/DOSE IH SCH (11:25)
[2019-09-12] MEDS: METHYLPREDNISOLONE INJ 40 MG/1 ML SDV IV SCH ×3 (11:28→21:23)
--- NOTE | 2019-09-12 11:47 | PDOC PROGRESS REPORT ---
Subjective Progress Note for:: 09/12/19 Subjective:: FLORENCIO MARROQUIN is a 38 year old female past medical history of obesity, chronic back pain with opiate dependency currently on methadone maintenance, presented to ED complaining of worsening shortness of breath. Brought to ED by EMS was noted to be saturating 78% on room air by EMS. Was started on breathing treatment and on nonrebreather on 15 L and brought to ED. She is a stating that she developed flulike symptoms including fever, vomiting diarrhea and body aches a week ago went to see her PCP was started on prednisone, promethazine which made her feel somewhat better but then she developed worsening shortness of breath, orthopnea and has had 2 sleep on her recliner due to severe orthopnea. Denies any chest pain, abdominal pain, diarrhea, constipation, weight changes, headache, numbness, tingling, or focal neurological symptoms. 09/11/2019. No acute events overnight. Saw patient this morning, resting in bed in no apparent distress, on supplemental oxygen, stating that she still gets short of breath off of oxygen and has been on BiPAP and supplemental oxygen overnight. Denies any fever, chills, nausea, vomiting, diarrhea, constipation or any urinary symptoms. 09/12/2019. No acute events overnight. Endorsing mild improvement of re spiration, gets very distressed off of oxygen, still complaining of persistent cough, denies any fever, chills, nausea, vomiting, diarrhea, constipation or any urinary symptoms. Reason For Visit: MULTIFOCAL PNEUMONIA,ACUTE RESPIRATORY FAILURE Physical Exam Vital Signs: Temp Pulse Resp BP Pulse Ox 98.0 F 63 18 123/64 93 09/12/19 07:56 09/12/19 09:17 09/12/19 09:17 09/12/19 07:56 09/12/19 09:17 Intake & Output 09/11/19 09/12/19 09/13/19 06:59 06:59 06:59 Intake Total 1307 710 Output Total 100 Balance 1207 710 Weight 97.4 kg 97.4 kg General appearance: PRESENT: no acute distress, well-developed, well-nourished Head exam: PRESENT: atraumatic, normocephalic Respiratory exam: PRESENT: crackles. ABSENT: rales, rhonchi, wheezes Cardiovascular exam: PRESENT: RRR. ABSENT: diastolic murmur, rubs, systolic murmur GI/Abdominal exam: PRESENT: normal bowel sounds, soft. ABSENT: distended, guarding, mass, organolmegaly, rebound, tenderness Neurological exam: PRESENT: alert, awake, oriented to person, oriented to place, oriented to time, oriented to situation, CN II-XII grossly intact. ABSENT: motor sensory deficit Results Laboratory Results: 09/11/19 02:45 09/11/19 02:45 09/10/19 09/10/19 09/10/19 14:46 14:46 19:55 Creatine Kinase 209 H CK-MB (CK-2) 1.77 Troponin I 0.024 0.032 NT-Pro-B Natriuret Pep 702 H 09/11/19 09/11/19 02:45 08:29 Creatine Kinase CK-MB (CK-2) Troponin I 0.034 0.046 NT-Pro-B Natriuret Pep Impressions: Chest X-Ray 09/10/19 14:46 IMPRESSION: Patchy bilateral airspace disease, greatest within the left lower lobe, suggestive of multifocal pneumonia. Assessment and Plan - Diagnosis (1) Acute respiratory failure with hypoxia Is this a current diagnosis for this admission?: Yes Plan: Mild improvement. SPO2 WNL on 4 to 6 L. Presented with SPO2 of 78% on room air. Likely underlying multifocal pneumonia complicated by history of asthma. Former smoker. Denies any vaping. Continue BiPAP, duo nebs, LABA, LABA, ICS, IV steroids, broad-spectrum empiric IV antibiotics, pulmonology, flutter valve, incentive spirometry. (2) Multifocal pneumonia Is this a current diagnosis for this admission?: Yes Plan: As per #1. (3) Hyperlipidemia Is this a current diagnosis for this admission?: Yes Plan: We will start on low intensity statins. Diet and lifestyle modification recommended. Outpatient PCP follow-up for LFT monitoring. (4) Opioid dependence Qualifiers: Substance use status: in remission Qualified Code(s): F11.21 - Opioid dependence, in remission Is this a current diagnosis for this admission?: Yes Plan: History of opiate dependency which started with taking prescription opioids for chronic back pain. Currently seen at the methadone clinic. On methadone 60 mg p.o. daily. Restart home meds. Monitor for severe depression. Supportive measures. (5) History of cocaine abuse Is this a current diagnosis for this admission?: Yes Plan: Remote history of cocaine abuse. Encouraged abstinence. (6) Elevated troponin Is this a current diagnosis for this admission?: Yes Plan: Denies any anginal symptoms. Troponins 0.024, 0.032, 0.034, 0.046 respectively. proBNP 702. EKG sinus rhythm, right axis deviation, nonspecific T wave abnormalities. Endorses positive CAD history in the family. Sister of myocardial infarction at age 40. Given family history and also history of cocaine abuse not sure if patient has underlying cardiomyopathy. Pending 2D echo. Cardiology consulted. Recommendations pending.
[2019-09-12] MEDS: CEFTRIAXONE 1 GM/D5W RTU 1 GM/50 ML RTUPB IV SCH (17:19)
--- NOTE | 2019-09-12 17:19 | XCELERA REPORT ---
[address] [address] Transthoracic Echocardiogram Report Name: FLORENCIO MARROQUIN Age: 38 yrs Gender: Female : 1980 Patient Status: Inpatient Patient Location: [address] [place], [place] [id number] Study Date: 09/12/2019 09:25 AM History: ROSA M Height: 66 in Weight: 214 lb BSA: 2.1 m2 Procedure: A complete two-dimensional transthoracic echocardiogram was performed (2D, M-mode, spectral and color flow Doppler). Reason For Study: elevated trop Previous Evaluation: No previous studies were available. History: NSTEMI. Ordering Physician: GILDA CLARK Performed By: Benji Kaur Interpretation Summary Left ventricular systolic function is normal. The Ejection Fraction estimate is 55-60% The right ventricle is normal in size and function. There is a trace amount of mitral regurgitation There is a trace amount of tricuspid regurgitation Doppler findings do not suggest pulmonary hypertension. There is no pericardial effusion. No regional wall motion abnormalities noted. MMode/2D Measurements & Calculations RVDd: 2.6 cm LVIDd: 5.3 cm FS: 37.7 % Ao root diam: 2.9 cm IVSd: 0.84 cm LVIDs: 3.3 cm EDV(Teich): 136.1 ml Ao root area: 6.4 cm2 LVPWd: 0.79 cm ESV(Teich): 44.4 ml LA dimension: 3.4 cm EF(Teich): 67.4 % Doppler Measurements & Calculations MV E max lane: MV P1/2t max lane: Ao V2 max: LV V1 max P.0 cm/sec 123.1 cm/sec 148.9 cm/sec 5.[address] A max lane: MV P1/2t: 81.0 msec Ao max P.9 mmHgLV V1 max: 62.2 cm/sec MVA(P1/2t): 2.7 cm2 119.5 cm/sec MV E/A: 1.9 MV dec slope: LV dP/dt: 2272 mmHg/s 445.1 cm/sec2 MV dec time: 0.23 sec PA V2 max: TR max lane: MV P1/2t-pr_phl: 100.7 cm/sec 272.7 cm/sec 81.0 msec PA max P.1 mmHgTR max P.7 mmHg Left Ventricle The left ventricle is grossly normal size. There is normal left ventricular wall thickness. Left ventricular systolic function is normal. The Ejection Fraction estimate is 55-60%. No regional wall motion abnormalities noted. Right Ventricle The right ventricle is normal in size and function. Atria The right atrium is normal. The left atrial size is normal. The interatrial septum is intact with no evidence for an atrial septal defect. Mitral Valve The mitral valve is grossly normal. There is a trace amount of mitral regurgitation. Aortic Valve The aortic valve is trileaflet. The aortic valve is normal in structure and function. The aortic valve opens well. There is no aortic valve stenosis. No aortic regurgitation is present. Tricuspid Valve The tricuspid valve is normal in structure and function. There is no tricuspid stenosis. There is a trace amount of tricuspid regurgitation. Doppler findings do not suggest pulmonary hypertension. Right ventricular systolic pressure is estimated to be within upper limit of normal. Pulmonic Valve The pulmonic valve is not well visualized. There is a trace amount of pulmonic regurgitation. Great Vessels The aortic root is normal size. The inferior vena cava appeared normal and decreased < 50% with respiration (RAP 10-15 mmHg). Effusions There is no pericardial effusion. : GILDA CLARK Anil
[2019-09-13] MEDS: METHYLPREDNISOLONE INJ 40 MG/1 ML SDV IV SCH (06:57)
[2019-09-13] MEDS: PANTOPRAZOLE SODIUM 40 MG TABLET.DR PO SCH (06:58)
[2019-09-13] MEDS: IPRATROPIUM/ALBUTEROL 0.5-2.5 MG/3 ML AMPUL NEB SCH (09:11)
[2019-09-13] MEDS: METHADONE HCL 10 MG TABLET PO SCH (09:57)
[2019-09-13] MEDS: DOCUSATE SODIUM 100 MG/10 ML UDC PO SCH (09:59)
[2019-09-13] MEDS: ENOXAPARIN SODIUM INJ 40 MG/0.4 ML DISP.SYRIN SUBCUT SCH (09:59)
[2019-09-13] MEDS ORDERED: AZITHROMYCIN 250 MG TABLET PO SCH (10:00)
[2019-09-13] MEDS: FLUTICASONE/UMECLIDIN/VILANTER 100-62.5-25 MCG/DOSE IH SCH (10:05)
[2019-09-13 10:08] VITALS: BP 114/65
--- NOTE | 2019-09-13 10:17 | PDOC DISCHARGE SUMMARY ---
Impression - Admit/DC Date/PCP Admission Date/Primary Care Provider: 09/10/19 18:20 MILLICENT CHOWDARY MD Discharge Date: 09/13/19 - Discharge Diagnosis (1) Acute respiratory failure with hypoxia Is this a current diagnosis for this admission?: Yes (2) Multifocal pneumonia Is this a current diagnosis for this admission?: Yes (3) Hyperlipidemia Is this a current diagnosis for this admission?: Yes (4) Opioid dependence Is this a current diagnosis for this admission?: Yes (5) History of cocaine abuse Is this a current diagnosis for this admission?: Yes (6) Elevated troponin Is this a current diagnosis for this admission?: Yes - Additional Information Discharge Diet: As Tolerated Discharge Activity: Activity As Tolerated, Balance Activity w/Rest Referrals: MILLICENT CHOWDARY MD [Primary Care Provider] - Follow up as needed Prescriptions: Fluticasone Propion/Salmeterol [Advair Hfa 230-21 Mcg Inhaler] 12 gm IH BID 30 Days #1 [email or web address] Albuterol Sulfate [Albuterol Sulfate Hfa] 18 gm IH Q6 PRN 30 Days #1 [email or web address] PRN Reason: Prednisone [Deltasone 20 mg Tablet] 20 mg PO DAILY 4 Days #8 tablet Levofloxacin [Levaquin 500 mg Tablet] 500 mg PO DAILY 3 Days #3 tablet Home Medications: Acetaminophen [Acetaminophen Extra Strength] 1,000 mg PO Q6HP PRN 09/10/19 Dextroamphetamine/Amphetamine [Adderall 10 mg Tablet] 20 mg PO BID 09/10/19 Metformin HCl [Metformin HCl ER] 1,000 mg PO WSUPPER 09/10/19 Albuterol Sulfate [Albuterol Sulfate Hfa] 18 gm IH Q6 PRN 30 Days #1 hfa.[email or web address] 09/13/19 Fluticasone Propion/Salmeterol [Advair Hfa 230-21 Mcg Inhaler] 12 gm IH BID 30 Days #1 hfa.aer.ad 09/13/19 Levofloxacin [Levaquin 500 mg Tablet] 500 mg PO DAILY 3 Days #3 tablet 09/13/19 Prednisone [Deltasone 20 mg Tablet] 20 mg PO DAILY 4 Days #8 tablet 09/13/19 History of Present Illiness History of Present Illness: FLORENCIO MARROQUIN is a 38 year old female past medical history of obesity, chronic back pain with opiate dependency currently on methadone maintenance, scented to ED complaining of worsening shortness of breath. Brought to ED by EMS was noted to be saturating 78% on room air by EMS. Was started on breathing treatment and on nonrebreather on 15 L and brought to ED. She is a stating that she developed flulike symptoms including fever, vomiting diarrhea and body aches a week ago went to see her PCP was started on prednisone, promethazine which made her feel somewhat better but then she developed worsening shortness of breath, orthopnea and has had 2 sleep on her recliner due to severe orthopnea. Denies any chest pain, abdominal pain, diarrhea, constipation, weight changes, headache, numbness, tingling, or focal neurological symptoms. Hospital Course Hospital Course: (1) Acute respiratory failure with hypoxia Resolved. SPO2 WNL on RA. Presented with SPO2 of 78% on room air. Likely underlying multifocal pneumonia complicated by history of asthma. Former smoker. Denies any vaping. Was a started BiPAP, duo nebs, LABA, LABA, ICS, IV steroids, broad-spectrum empiric IV antibiotics, pulmonology, flutter valve, incentive spirometry. Received 4 doses of IV ceftriaxone and IV azithromycin. Discharged on 3 days of p.o. levofloxacin. All cultures negative. (2) Multifocal pneumonia As per #1. (3) Hyperlipidemia Diet and lifestyle modification recommended. Outpatient PCP in 6 months to recheck lipid panel. (4) Opioid dependence History of opiate dependency which started with taking prescription opioids for chronic back pain. Currently seen at the methadone clinic. On methadone 60 mg p.o. daily. Restarted home meds. Monitor for severe depression. Supportive measures. (5) History of cocaine abuse Remote history of cocaine abuse. Encouraged abstinence. (6) Elevated troponin Denied any anginal symptoms. Troponins 0.024, 0.032, 0.034, 0.046 respectively. proBNP 702. EKG sinus rhythm, right axis deviation, nonspecific T wave abnormalities. Endorses positive CAD history in the family. Sister of myocardial infarction at age 40. Given family history and also history of cocaine abuse not sure if patient has underlying cardiomyopathy. 2D echo left ventricular ejection fraction WNL. Read as normal echo by Dr. Douglas Jordan. Had a conversation with Dr. Douglas Jordan over the phone who stated that he does not believe troponin elevations are due to acute ACS. Stated it could be related demand mismatch due to her acute respiratory failure with pneumonia He recommended to follow-up with him as outpatient. Patient was advised to follow-up with Dr. Jordan as outpatient. Patient voiced understanding. Physical Exam Vital Signs: Temp Pulse Resp BP Pulse Ox 97.5 F 59 L 16 114/65 97 09/13/19 10:06 09/13/19 10:06 09/13/19 10:06 09/13/19 10:06 09/13/19 10:06 Intake & Output 09/12/19 09/13/19 09/14/19 06:59 06:59 06:59 Intake Total 760 2830 Balance 760 2830 Weight 97.4 kg 105.6 kg General appearance: PRESENT: obese Head exam: PRESENT: atraumatic, normocephalic Respiratory exam: PRESENT: clear to auscultation jose f. ABSENT: rales, rhonchi, wheezes Pulses: PRESENT: normal dorsalis pedis pul GI/Abdominal exam: PRESENT: normal bowel sounds, soft. ABSENT: distended, guarding, mass, organolmegaly, rebound, tenderness Extremities exam: PRESENT: full ROM. ABSENT: calf tenderness, clubbing, pedal edema Neurological exam: PRESENT: alert, awake, oriented to person, oriented to place, oriented to time, oriented to situation, CN II-XII grossly intact. ABSENT: motor sensory deficit Skin exam: PRESENT: dry, intact, warm. ABSENT: cyanosis, rash Results Laboratory Results: WBC 3.1 10^3/uL (4.0-10.5) L 09/11/19 02:45 RBC 4.26 10^6/uL (3.72-5.28) 09/11/19 02:45 Hgb 12.4 g/dL (12.0-15.5) 09/11/19 02:45 Hct 36.0 % (36.0-47.0) 09/11/19 02:45 MCV 84 fl (80-97) 09/11/19 02:45 MCH 29.1 pg (27.0-33.4) 09/11/19 02:45 MCHC 34.4 g/dL (32.0-36.0) 09/11/19 02:45 RDW 14.8 % (11.5-14.0) H 09/11/19 02:45 Plt Count 198 10^3/uL (150-450) 09/11/19 02:45 Lymph % (Auto) 13.9 % (13-45) 09/11/19 02:45 Dickson % (Auto) 13.2 % (3-13) H 09/11/19 02:45 Eos % (Auto) 0.0 % (0-6) 09/11/19 02:45 Baso % (Auto) 0.1 % (0-2) 09/11/19 02:45 Absolute Neuts (auto) 2.2 10^3/uL (1.7-8.2) 09/11/19 02:45 Absolute Lymphs (auto) 0.4 10^3/uL (0.5-4.7) L 09/11/19 02:45 Absolute Monos (auto) 0.4 10^3/uL (0.1-1.4) 09/11/19 02:45 Absolute Eos (auto) 0.0 10^3/uL (0.0-0.6) 09/11/19 02:45 Absolute Basos (auto) 0.0 10^3/uL (0.0-0.2) 09/11/19 02:45 Seg Neutrophils % 72.8 % (42-78) 09/11/19 02:45 VBG pH 7.44 (7.30-7.42) H 09/10/19 15:45 VBG pCO2 46.0 mmHg (35-63) 09/10/19 15:45 VBG HCO3 30.4 mmol/L (20-32) 09/10/19 15:45 VBG Base Excess 5.3 mmol/L 09/10/19 15:45 Sodium 138.7 mmol/L (137-145) 09/11/19 02:45 Potassium 4.0 mmol/L (3.6-5.0) 09/11/19 02:45 Chloride 100 mmol/L (98-107) 09/11/19 02:45 Carbon Dioxide 33 mmol/L (22-30) H 09/11/19 02:45 Anion Gap 6 (5-19) 09/11/19 02:45 BUN 11 mg/dL (7-20) 09/11/19 02:45 Creatinine 0.50 mg/dL (0.52-1.25) L 09/11/19 02:45 Est GFR ( Amer) > 60 (>60) 09/11/19 02:45 Est GFR (MDRD) Non-Af > 60 (>60) 09/11/19 02:45 Glucose 132 mg/dL (75-110) H 09/11/19 02:45 POC Glucose 103 mg/dL (70-110) 09/11/19 21:23 Hemoglobin A1c % 5.5 % (4.7-6.0) 09/11/19 02:45 Lactic Acid 1.4 mmol/L (0.7-2.1) 09/10/19 15:45 Calcium 8.1 mg/dL (8.4-10.2) L 09/11/19 02:45 Magnesium 2.2 mg/dL (1.6-2.3) 09/11/19 02:45 Total Bilirubin 0.3 mg/dL (0.2-1.3) 09/11/19 02:45 Direct Bilirubin 0.3 mg/dL (0.0-0.4) 09/11/19 02:45 Neonat Total Bilirubin Not Reportable 09/11/19 02:45 Neonat Direct Bilirubin Not Reportable 09/11/19 02:45 Neonat Indirect Bili Not Reportable 09/11/19 02:45 AST 121 U/L (14-36) H 09/11/19 02:45 ALT 101 U/L (<35) 09/11/19 02:45 Alkaline Phosphatase 123 U/L (38-126) 09/11/19 02:45 Creatine Kinase 209 U/L (30-135) H 09/10/19 14:46 CK-MB (CK-2) 1.77 ng/mL (<4.55) 09/10/19 14:46 Troponin I 0.046 ng/mL 09/11/19 08:29 NT-Pro-B Natriuret Pep 702 pg/mL (<125) H 09/10/19 14:46 Total Protein 5.9 g/dL (6.3-8.2) L 09/11/19 02:45 Albumin 2.7 g/dL (3.5-5.0) L 09/11/19 02:45 Triglycerides 199 mg/dL (<150) H 09/11/19 02:45 Cholesterol 116.86 mg/dL (0-200) 09/11/19 02:45 LDL Cholesterol Direct 73 mg/dL (<100) 09/11/19 02:45 VLDL Cholesterol 39.8 mg/dL (10-31) H 09/11/19 02:45 HDL Cholesterol 24 mg/dL (>40) L 09/11/19 02:45 TSH 0.19 uIU/mL (0.47-4.68) L 09/11/19 02:45 Free T4 1.32 ng/dL (0.78-2.19) 09/11/19 08:29 Free T3 pg/mL 2.95 pg/mL (2.77-5.27) 09/11/19 08:29 Urine Color YELLOW 09/10/19 15:45 Urine Appearance SLIGHTLY-CLOUDY 09/10/19 15:45 Urine pH 7.0 (5.0-9.0) 09/10/19 15:45 Ur Specific [place] 1.020 09/10/19 15:45 Urine Protein 100 mg/dL (NEGATIVE) H 09/10/19 15:45 Urine Glucose (UA) NEGATIVE mg/dL (NEGATIVE) 09/10/19 15:45 Urine Ketones NEGATIVE mg/dL (NEGATIVE) 09/10/19 15:45 Urine Blood LARGE (NEGATIVE) H 09/10/19 15:45 Urine Nitrite NEGATIVE (NEGATIVE) 09/10/19 15:45 Urine Bilirubin NEGATIVE (NEGATIVE) 09/10/19 15:45 Urine Urobilinogen 4.0 mg/dL (<2.0) H 09/10/19 15:45 Ur Leukocyte Esterase TRACE (NEGATIVE) H 09/10/19 15:45 Urine WBC (Auto) 4 /HPF 09/10/19 15:45 Urine RBC (Auto) 138 /HPF 09/10/19 15:45 Squamous Epi Cells Auto 4 /HPF 09/10/19 15:45 Urine Mucus (Auto) RARE /LPF 09/10/19 15:45 Urine Ascorbic Acid NEGATIVE (NEGATIVE) 09/10/19 15:45 Urine HCG, Qual NEGATIVE (NEGATIVE) 09/10/19 15:45 09/10/19 09/10/19 09/11/19 14:46 19:55 02:45 CK-MB (CK-2) 1.77 Troponin I 0.024 0.032 0.034 NT-Pro-B Natriuret Pep 702 H 09/11/19 08:29 CK-MB (CK-2) Troponin I 0.046 NT-Pro-B Natriuret Pep Impressions: Chest X-Ray 09/10/19 14:46 IMPRESSION: Patchy bilateral airspace disease, greatest within the left lower lobe, suggestive of multifocal pneumonia. Plan Time Spent: Greater than 30 Minutes Stroke Is this a Stroke Patient?: No Acute Heart Failure - Is this a Heart Failure Patient?: No
== END 2019-09-13 12:48 | disposition home or self-care (01) | DRG 189 ==
LOC: ER 14:41 → EH 18:20 → 3S 09-11 05:44
PROVIDERS: ADMIT Internal Medicine; ATTEND Internal Medicine
DX: J96.01 Acute respiratory failure with hypoxia (principal); J18.9 Pneumonia, unspecified organism; F11.20 Opioid dependence, uncomplicated; E11.8 Type 2 diabetes mellitus with unspecified complications; E78.5 Hyperlipidemia, unspecified
CPT/HCPCS: 36415; 71045; 80053; 80061; 81001; 81025; 82550; 82553; 82803; 82962; 83036; 83605; 83735; 83880; 84439; 84443; 84481; 84484; 85025; 87040; 87070; 87205; 93005; 93010; 93306; 94660; 94667; 94799; 96365; 99291; J0456; J0696; J1650; J2405; J2920; J3490; J7030; J7060; J7120; J7620